=== PATIENT | male | born 1995 | race Caucasian/White ===

== ENCOUNTER 2017-01-25 15:52 | Inpatient (IN) | payer OTHER ==
[2017-01-25] MEDS ORDERED: Sodium Chloride 0.9% 1,000 ML IV STA (16:11)
[2017-01-25 16:26] LABS: ADD MANUAL DIFF? NO
[2017-01-25 16:30] LABS: BASO # 0.03 K/mm3 (0.0-2.0); BASO % 0.2 % (0.0-3.0); GRAN # 10.03 (1.4-6.5); GRAN % 75.8 % (50.0-68.0); HEMATOCRIT 48.6 % (42.0-52.0); LYMPH # 2.5 (1.2-3.4); MEAN CELL VOLUME 81.5 fL (80.0-105.0); MEAN CORPUSCULAR HEMOGLOBIN 27.9 pg (25.0-35.0); MEAN CORPUSCULAR HGB CONC 34.2 g/dl (31.0-37.0); MONO # 0.7 (0.1-0.6); PLATELET COUNT 237 10^3/uL (120.0-450.0); RED CELL DISTRIBUTION WIDTH 13.8 % (11.5-14.5); WHITE BLOOD COUNT 13.2 10^3/ul (4.5-11.0)
--- NOTE | 2017-01-25 16:31 | ED PDOC ---
Arrival/HPI - General Historian: Patient <Ludy Lopez PA-C - Last Filed: 01/25/17 18:59> <Pilo Alcaraz - Last Filed: 01/25/17 22:29> - General Chief Complaint: GI Problem Time Seen by Provider: 01/25/17 16:11 - History of Present Illness Narrative History of Present Illness (Text): 01/25/17 16:28 Patient w/ no PMH, complains nausea and multiple episodes of bright red bloody vomiting, with no abdominal pain, states that he was out drinking last night and drank a full bottle of [place]. Otherwise: (-) urinary symptoms, (-) diarrhea, (-) fever, (-) melena, (-) hematochezia. Has no history of prior abdominal surgery. PMD none (Ludy Lopez PA-C) Past Medical History - Provider Review Nursing Documentation Reviewed: Yes - Past History Past History: Non-Contributing - Infectious Disease Hx of Infectious Diseases: None - Tetanus Immunization Tetanus Immunization: Unknown - Reproductive Currently : No - Past Medical History Past Medical History: No Previous - Psychiatric Hx Depression: No Hx Emotional Abuse: No Hx Physical Abuse: No Hx Substance Use: No - Past Surgical History Past Surgical History: No Previous - Anesthesia Hx Anesthesia: No Hx Anesthesia Reactions: No Hx Malignant Hyperthermia: No - Suicidal Assessment Feels Threatened In Home Enviroment: No <Ludy Lopez PA-C - Last Filed: 01/25/17 18:59> Family/Social History - Physician Review Nursing Documentation Reviewed: Yes Family/Social History: No Known Family HX Smoking Status: Heavy Smoker > 10 Cigarettes Daily Hx Alcohol Use: No Hx Substance Use: No Substance used: marijuana Amount: 2 Hx Substance Use Treatment: No <Ludy Lopez PA-C - Last Filed: 01/25/17 18:59> Allergies/Home Meds <Ludy Lopez PA-C - Last Filed: 01/25/17 18:59> <Pilo Alcaraz - Last Filed: 01/25/17 22:29> Allergies/Adverse Reactions: Allergies No Known Allergies Allergy (Verified 01/25/17 15:57) Home Medications: Home Meds Medication Instructions Recorded Confirmed No Known Home Med 01/25/17 01/25/17 Review of Systems - Review of Systems Constitutional: Normal. absent: Fatigue, Weight Change, Fevers Respiratory: Normal. absent: SOB, Cough, Sputum Cardiovascular: Normal. absent: Chest Pain, Palpitations, Edema Gastrointestinal: Normal, Abdominal Pain, Nausea, Vomiting. absent: Stool Changes, Appetite Changes Musculoskeletal: Normal. absent: Arthralgias, Back Pain, Neck Pain Skin: Normal. absent: Rash, Pruritis, Skin Lesions <Ludy Lopez PA-C - Last Filed: 01/25/17 18:59> Physical Exam Vital Signs Reviewed: Yes Temperature: Afebrile Blood Pressure: Normal Pulse: Regular Respiratory Rate: Normal Appearance: Positive for: Well-Appearing, Other (Patient is actively vomiting (+ ) bright red blood.) Mental Status: Positive for: Alert and Oriented X 3 - Systems Exam Head: Present: Atraumatic, Normocephalic Mouth: Present: Dry Neck: Present: Normal Range of Motion. No: Meningeal Signs, MIDLINE TENDERNESS , Lymphadenopathy Respiratory/Chest: Present: Clear to Auscultation, Good Air Exchange. No: Respiratory Distress, Accessory Muscle Use, Wheezes, Rales, Rhonchi Cardiovascular: Present: Regular Rate and Rhythm, Normal S1, S2. No: Murmurs Abdomen: Present: Tenderness, Normal Bowel Sounds. No: Distention, Peritoneal Signs, Rebound, Guarding, Mass/Organomegaly Back: Present: Normal Inspection. No: CVA Tenderness, Midline Tenderness, Paraspinal Tenderness Upper Extremity: Present: Normal Inspection, Normal ROM. No: Tenderness, Swelling Lower Extremity: Present: Normal Inspection, Normal ROM. No: Tenderness, Swelling Neurological: Present: GCS=15, CN II-XII Intact, Speech Normal Skin: Present: Warm, Dry, Normal Color. No: Rashes <Ludy Lopez PA-C - Last Filed: 01/25/17 18:59> Medical Decision Making <Ludy Lopez PA-C - Last Filed: 01/25/17 18:59> <Pilo Alcaraz - Last Filed: 01/25/17 22:29> ED Course and Treatment: 01/25/17 16:26 21 yo M presents with nausea and vomiting, after drinking etoh last night. Consider upper GI bleed, gastritis, possible yoshi cedeno tear. Plan: - Labs - IV - NS bolus - Pepcid / Zofran 01/25/17 18:00 On re-evaluation, patient is still feeling nauseous, is still actively vomiting bright red vomit, denies any abdominal pain. On exam, patient is in mild distress, abdomen remains soft with no tenderness. Labs reviewed and discussed with the patient. Given another dose of reglan IV and given continued NS. VSS. Considering the history and patient's continued vomiting with bright red vomit, will admit the patient. Call placed to Dr. Caba and case discussed, arrangements made for admission. Patient agrees for further plan of care. Protonix bolus and drip IV ordered. (John URBINA,Ludy Lamar) - Lab Interpretations Lab Results: 01/25/17 16:15 01/25/17 16:15 Lab Results 01/25/17 16:15: Alcohol, Quantitative < 10 01/25/17 16:15: Sodium 142, Potassium 4.0, Chloride 100, Carbon Dioxide 24, Anion Gap 22 H, BUN 17, Creatinine 0.8, Est GFR ( Amer) > 60, Est GFR ( Non-Af Amer) > 60, Random Glucose 93, Calcium 10.4, Total Bilirubin 0.8, AST 55 , ALT 48, Alkaline Phosphatase 88, Total Protein 9.7 H, Albumin 5.5 H, Globulin 4.3, Albumin/Globulin Ratio 1.3, Lipase 44 01/25/17 16:15: PT 11.1, INR 1.03, APTT 26.8 01/25/17 16:15: WBC 13.2 H, RBC 5.96, Hgb 16.6, Hct 48.6, MCV 81.5, MCH 27.9, MCHC 34.2, RDW 13.8, Plt Count 237, MPV 12.0 H, Gran % 75.8 H, Lymph % (Auto) 19.0 L, Mcminn % (Auto) 5.0, Eos % (Auto) 0.0 L, Baso % (Auto) 0.2, Gran # 10.03 H , Lymph # 2.5, Mcminn # 0.7 H, Eos # 0.0, Baso # 0.03 - Medication Orders Current Medication Orders: Sodium Chloride (Sodium Chloride 0.9%) 1,000 mls @ 200 mls/hr IV .Q5H RISHI Last Admin: 01/25/17 18:15 Dose: 200 mls/hr Pantoprazole Sodium (Protonix 40mg Ivpb) 40 mg in 100 mls @ 20 mls/hr IVPB .Q5H RISHI Last Admin: 01/25/17 18:46 Dose: 20 mls/hr Lorazepam (Ativan) 2 mg IVP Q4H PRN; Protocol PRN Reason: Symptoms of alcohol withdrawl Ondansetron HCl (Zofran Inj) 4 mg IVP Q4H PRN PRN Reason: Nausea/Vomiting Discontinued Medications Famotidine (Pepcid) 20 mg IVP STAT STA Stop: 01/25/17 16:12 Last Admin: 01/25/17 16:23 Dose: 20 mg Sodium Chloride (Sodium Chloride 0.9%) 1,000 mls @ 1,000 mls/hr IV .Q1H STA Stop: 01/25/17 17:10 Last Admin: 01/25/17 16:28 Dose: 1,000 mls/hr Metoclopramide HCl (Reglan) 10 mg IVP STAT STA Stop: 01/25/17 17:36 Last Admin: 01/25/17 18:14 Dose: 10 mg Ondansetron HCl (Zofran Inj) 8 mg IVP STAT STA Stop: 01/25/17 16:12 Last Admin: 01/25/17 16:23 Dose: 8 mg Pantoprazole Sodium (Protonix Inj) 80 mg IVP STAT STA Stop: 01/25/17 18:17 Last Admin: 01/25/17 18:45 Dose: 80 mg - PA / PARKING ATTENDANT / Resident Statement JIHAN has reviewed & agrees with the documentation as recorded. <Ludy Lopez PA-C - Last Filed: 01/25/17 18:59> - PA / PARKING ATTENDANT / Resident Statement JIHAN has reviewed & agrees with the documentation as recorded. <Pilo Alcaraz - Last Filed: 01/25/17 22:29> Disposition/Present on Arrival - Present on Arrival Any Indicators Present on Arrival: No History of DVT/PE: No History of Uncontrolled Diabetes: No Urinary Catheter: No History of Decub. Ulcer: No History Surgical Site Infection Following: None - Disposition Have Diagnosis and Disposition been Completed?: Yes Disposition Time: 18:15 Patient Plan: Telemetry <Ludy Lopez PA-C - Last Filed: 01/25/17 18:59> <Pilo Alcaraz - Last Filed: 01/25/17 22:29> - Disposition Diagnosis: Intractable vomiting, Upper GI bleed Disposition: HOSPITALIZED Patient Problems: Current Active Problems Problem Status Onset Intractable vomiting Acute Upper GI bleed Acute Condition: STABLE
[2017-01-25 16:38] LABS: ALB/GLOB RATIO 1.3 (1.1-1.8); ALKALINE PHOSPHATASE 88 U/L (38-133); ALT/SGPT 48 U/L (7-56); AST/SGOT 55 U/L (15-59); BILIRUBIN,TOTAL 0.8 mg/dL (0.2-1.3); BLOOD UREA NITROGEN 17 mg/dL (7-21); CALCIUM 10.4 mg/dL (8.4-10.5); CARBON DIOXIDE 24 mmol/L (21-33); CHLORIDE 100 mmol/L (98-107); GFR AFRICAN-AMERICAN > 60; GLUCOSE,RANDOM 93 mg/dL (70-110); LIPASE 44 U/L (23-300); SODIUM 142 mmol/L (132-148); TOTAL PROTEIN 9.7 g/dL (5.8-8.3)
[2017-01-25 16:48] LABS: INR 1.03 (0.93-1.08); PARTIAL THROMBOPLASTIN TIME 26.8 Seconds (23.7-30.8)
[2017-01-25] MEDS: Sodium Chloride 0.9% 1,000 ML IV SCH ×2 (18:15→23:43)
[2017-01-25] MEDS: Pantoprazole 40mg/100ml IVPB 40 MG/100 ML BAG IVPB SCH ×2 (18:46→23:40)
--- NOTE | 2017-01-25 19:23 | CP.PCM.HP ---
<EsdrasKenn rock - Last Filed: 01/25/17 19:19> History of Present Illness - History of Present Illness History of Present Illness: cc: nausea/vomiting HPI: Patient is a 21yo male with past medical history of alcohol abuse that presents c/o nausea and vomiting since 1pm today. Patient reported that he had more than a bottle of hard liquor the night prior and woke up this morning with a headache and nausea. He reported that he starting having coffee-ground emesis in the afternoon. Patient stated that he has had visiting to the [facility] in the past for the same issue due to alcohol abuse. In the ED, patient's vitals were as follows: temperature 97.5F, heart rate 67bpm, blood pressure 136/82, respiratory rate 16, o2 sat 100% on room air. His H/H was 16.6/48.6, lipase 44, AST/ALT 55/48, Tbili 0.8. He denied chest pain, palpitations, SOB, abdominal pain, fever, chills, cough, focal weakness, numbness, tingling. 12point ROS as per HPI above, otherwise negative PMHx: Alcohol abuse PSHx: denies Allergies: NKDA Medications: denies Family hx: denies family hx of illness Social Hx: Tobacco use (1/2ppd for ~6yrs), history of alcohol abuse (unable to quantify amount), denies illicit drug use Present on Admission - Present on Admission Any Indicators Present on Admission: No Past Patient History - Infectious Disease Hx of Infectious Diseases: None - Tetanus Immunizations Tetanus Immunization: Unknown - Past Social History Smoking Status: Heavy Smoker > 10 Cigarettes Daily - PSYCHIATRIC Hx Depression: No Hx Emotional Abuse: No Hx Physical Abuse: No Hx Substance Use: No - SURGICAL HISTORY Hx Surgeries: No - ANESTHESIA Hx Anesthesia: No Hx Anesthesia Reactions: No Hx Malignant Hyperthermia: No Meds Allergies/Adverse Reactions: Allergies Allergy/AdvReac Type Severity Reaction Status Date / Time No Known Allergies Allergy Verified 01/25/17 15:57 Physical Exam - Constitutional Appears: Non-toxic, No Acute Distress - Head Exam Head Exam: ATRAUMATIC, NORMAL INSPECTION, NORMOCEPHALIC - Eye Exam Eye Exam: EOMI, PERRL - ENT Exam ENT Exam: Mucous Membranes Moist - Neck Exam Neck exam: Positive for: Normal Inspection. Negative for: Lymphadenopathy, Tenderness, Thyromegaly - Respiratory Exam Respiratory Exam: Clear to Auscultation Bilateral. absent: Rales, Rhonchi, Wheezes - Cardiovascular Exam Cardiovascular Exam: RRR, +S1, +S2. absent: Gallop, JVD, Rubs, Systolic Murmur - GI/Abdominal Exam GI & Abdominal Exam: Soft. absent: Distended, Firm, Guarding, Rebound, Tenderness - Extremities Exam Extremities exam: Positive for: normal inspection, pedal pulses present. Negative for: calf tenderness, pedal edema, tenderness - Back Exam Back exam: NORMAL INSPECTION - Neurological Exam Neurological exam: Alert, CN II-XII Intact, Oriented x3 - Psychiatric Exam Psychiatric exam: Normal Affect, Normal Mood - Skin Skin Exam: Dry, Intact, Normal Color, Warm Results - Vital Signs Recent Vital Signs: Last Vital Signs Temp 98 F 01/25/17 15:55 Pulse 75 01/25/17 18:45 Resp 17 01/25/17 18:45 BP 150/80 01/25/17 18:45 Pulse Ox 100 01/25/17 18:45 - Labs Result Diagrams: 01/25/17 16:15 01/25/17 16:15 Assessment & Plan - Assessment and Plan (Free Text) Plan: 21yo male with history of alcohol abuse presents c/o intractable nausea/ vomiting secondary to alcohol abuse 1. Intractable nausea/vomiting -Coffee-ground emesis likely due to yoshi-cedeno tear secondary to alcohol abuse/wretching -H/H stable -Nausea/vomiting improved with zofran administration -No overt signs of bleeding at this time -Continue with zofran 4mg q4h PRN for nausea/vomiting -Continue protonix drip -IVF hydration with NS @200cc/hr -NPO -GI consulted - Dr. Jefferson 2. Alcohol abuse -Serum alcohol pending -[facility] protocol -Ativan 2q4 PRN in the event of withdrawal symptoms 3. GI/DVT prophylaxis -Protonix/SCD's Patient seen and case discussed with attending, Dr. Jay - Date & Time Date: 01/25/17 Time: 19:29 <Nilda Jay - Last Filed: 01/25/17 20:27> Results - Vital Signs Recent Vital Signs: Last Vital Signs Temp 98 F 01/25/17 15:55 Pulse 72 01/25/17 19:50 Resp 18 06/24/17 19:50 BP 121/69 01/25/17 19:50 Pulse Ox 100 01/25/17 19:50 - Labs Result Diagrams: 01/25/17 16:15 01/25/17 16:15 Attending/Attestation - Attestation I have personally seen and examined this patient.: Yes I have fully participated in the care of the patient.: Yes I have reviewed all pertinent clinical information: Yes Notes (Text): 01/25/17 20:25 Patient was seen when he was in bed # 15 in the ER. Agree with history, physical examination, assessment and plan. Patient admits to have used and have been using marijuana sometimes.
[2017-01-25 23:06] VITALS: BMI 18.4
[2017-01-26 00:14] VITALS: RESP 20
[2017-01-26] MEDS: Pantoprazole 40mg/100ml IVPB 40 MG/100 ML BAG IVPB SCH (04:12)
[2017-01-26] MEDS: Sodium Chloride 0.9% 1,000 ML IV SCH ×3 (04:17→11:06)
[2017-01-26 06:03] VITALS: O2SAT 98
[2017-01-26 07:27] LABS: ADD MANUAL DIFF? NO
[2017-01-26 08:09] LABS: BASO # 0.01 K/mm3 (0.0-2.0); BASO % 0.1 % (0.0-3.0); EOS % 0.2 % (1.5-5.0); GRAN # 5.85 (1.4-6.5); GRAN % 58.9 % (50.0-68.0); LYMPH # 3.3 (1.2-3.4); LYMPH % 33.2 % (22.0-35.0); MEAN CELL VOLUME 82.1 fL (80.0-105.0); MEAN CORPUSCULAR HEMOGLOBIN 26.9 pg (25.0-35.0); MEAN CORPUSCULAR HGB CONC 32.7 g/dl (31.0-37.0); MEAN PLATELET VOLUME 12.7 fl (7.0-11.0); MONO # 0.8 (0.1-0.6); MONO % 7.6 % (1.0-6.0); PLATELET COUNT 183 10^3/uL (120.0-450.0); RED CELL DISTRIBUTION WIDTH 13.8 % (11.5-14.5); WHITE BLOOD COUNT 9.9 10^3/ul (4.5-11.0)
[2017-01-26 08:10] LABS: HEMATOCRIT 39.4 % (42.0-52.0)
[2017-01-26 08:12] LABS: ALB/GLOB RATIO 1.5 (1.1-1.8); ALKALINE PHOSPHATASE 47 U/L (38-133); ALT/SGPT 36 U/L (7-56); AST/SGOT 28 U/L (15-59); BILIRUBIN,TOTAL 0.9 mg/dL (0.2-1.3); BLOOD UREA NITROGEN 14 mg/dL (7-21); CALCIUM 8.5 mg/dL (8.4-10.5); CARBON DIOXIDE 23 mmol/L (21-33); CHLORIDE 105 mmol/L (95-110); GFR AFRICAN-AMERICAN > 60; GLUCOSE,RANDOM 63 mg/dL (70-110); MAGNESIUM 1.9 mg/dL (1.7-2.2); POTASSIUM 4.1 mmol/L (3.6-5.0); SODIUM 139 mmol/L (132-148); TOTAL PROTEIN 6.2 g/dL (5.8-8.3)
--- NOTE | 2017-01-26 08:12 | CP.PCM.CON ---
History of Present Illness - History of Present Illness History of Present Illness: Asked by hospitalist team for a GI consultation on this patient. 21 year old male without significant past medical history who presents to the hospital with complaint of sudden onset nausea and vomiting which began at 1 pm yesterday. He was out for a friends birthday the night before and endorses heavy ETOH consumption with multiple glasses of hard liquor and beer. Prior to this he was in usual state of health. He endorses having multiple episodes of emesis, initially clear which later turned to dark color. He denies abdominal pain, fever/chills, weight loss, rectal bleeding, or change in bowel habits. Since arrival to hospital, no further episodes of nausea or vomiting. No prior endoscopic evaluation. Social history: smokes 1/2 PPD cigarettes, social ETOH consumption (though heavy during episodes) Family history: reviewed, patient denies GI malignancies Review of Systems - Review of Systems Review of Systems: - All other comprehensive 12 point review of systems performed, negative - Cardiovascular Cardiovascular: absent: Acrocyanosis, Chest Pain, Chest Pain at Rest, Chest Pain with Activity, Claudication, Diaphoresis, Dyspnea, Dyspnea on Exertion, Edema, Irregular Heart Rhythm, Pain Radiating to Arm/Neck/Jaw, Leg Edema, Leg Ulcers, Lightheadedness, Orthopnea, Palpitations, Paroxysmal Nocturnal Dyspnea, Pedal Edema, Radiating Pain, Rapid Heart Rate, Slow Heart Rate, Syncope, Other - Respiratory Respiratory: absent: Cough, Dyspnea, Hemoptysis, Dyspnea on Exertion, Wheezing, Snoring, Stridor, Pain on Inspiration, Chest Congestion, Excessive Mucous Production, Change in Mucous Color, Pain with Coughing, Other - Gastrointestinal Gastrointestinal: Nausea, Vomiting - Musculoskeletal Musculoskeletal: absent: Abnormal Gait, Arthralgias, Atrophy, Back Pain, Deformity, Joint Swelling, Limited Range of Motion, Loss of Height, Muscle Cramps, Muscle Weakness, Myalgias, Neck Pain, Numbness, Radiating Pain into Limb , Stiffness, Tingling, Other - Neurological Neurological: absent: Abnormal Gait, Abnormal Hearing, Abnormal Movements, Abnormal Speech, Behavioral Changes, Burning Sensations, Confusion, Convulsions , Disequilibrium, Dizziness, Numbness, Focal Weakness, Frequent Falls, Headaches , Lack of Coordination, Loss of Vision, Memory Loss, Paresthesias, Radicular Pain, Restless Legs, Sensory Deficit, Syncope, Tingling, Tremor, Vertigo, Weakness, Other Visual Disturbances, Other Past Patient History - Infectious Disease Hx of Infectious Diseases: None - Tetanus Immunizations Tetanus Immunization: Unknown - Past Social History Smoking Status: Light Smoker < 10 Cigarettes Daily - CARDIAC Hx Cardiac Disorders: No Hx Angina: No Hx Cardia Arrhythmia: No Hx Circulatory Problems: No Hx Congestive Heart Failure: No Hx Heart Murmur: No Hx Heart Transplant: No Hx Hypercholesterolemia: No Hx Hypertension: No Hx Internal Defibrillator: No Hx Mitral Valve Prolapse: No Hx Pacemaker: No Hx Peripheral Edema: No Hx Peripheral Vascular Disease: No - PULMONARY Hx Respiratory Disorders: No Hx Asthma: No Hx Bronchitis: No Hx Chronic Obstructive Pulmonary Disease (COPD): No Hx Emphysema: No Hx Pneumonia: No Hx Respiratory Aspiration: No Hx Respiratory Tract Infection: No Hx Sleep Apnea: No Hx Tuberculosis: No - NEUROLOGICAL Hx Neurological Disorder: No Hx Alzheimer's Disease: No HX Cerebrovascular Accident: No Hx Dementia: No Hx Dizziness: No Hx Meningitis: No Hx Migraine: No Hx Parkinson's Disease: No Hx Seizures: No Hx Transient Ischemic Attacks (TIA): No - HEENT Hx HEENT Problems: No Hx Blind: No Hx Cataracts: No Hx Deafness: No Hx Difficulty Chewing: No Hx Epistaxis: No Hx Glaucoma: No Hx Macular Degeneration: No - RENAL Hx Chronic Kidney Disease: No Hx Dialysis: No Hx Kidney Stones: No Hx Neurogenic Bladder: No Hx Pyelonephritis: No Hx Renal (Kidney) Cancer: No Hx Renal Failure: No - ENDOCRINE/METABOLIC Hx Endocrine Disorders: No Hx Adrenal Cancer: No Hx Diabetes Insipidus: No Hx Diabetes Mellitus Type 1: No Hx Diabetes Mellitus Type 2: No Hx Hyperthyroidism: No Hx Hypothyroidism: No Hx Systemic Lupus Erythematosus: No - HEMATOLOGICAL/ONCOLOGICAL Hx Blood Disorders: No Hx AIDS: No Hx Anemia: No Hx Cancer: No Hx Chemotherapy: No Hx Cirrhosis: No Hx Hemophilia: No Hx Hepatitis A: No Hx Hepatitis B: No Hx Hepatitis C: No Hx Human Immunodeficiency Virus (HIV): No Hx Metastesis: No Hx Shingles: No Hx Sickle Cell Disease: No Hx Unexplained Bleeding: No - INTEGUMENTARY Hx Dermatological Problems: No Hx Basil Cell: No Hx Eczema: No Hx Melanoma: No Hx Psoriasis: No Hx Squamous Cell: No - MUSCULOSKELETAL/RHEUMATOLOGICAL Hx Musculoskeletal Disorders: No Hx Arthritis: No Hx Back Pain: No Hx Degenerative Joint Disease: No Hx Falls: No Hx Fractures: No Hx Gout: No Hx Herniated Disk: No Hx Myasthenia Gravis: No Hx Osteoarthritis: No Hx Osteomyelitis: No Hx Osteoporosis: No Hx Rhabdomyolysis: No Hx Spinal Stenosis: No Hx Unsteady Gait: No - GASTROINTESTINAL Hx Gastrointestinal Disorders: No Hx Colostomy: No Hx Crohn's Disease: No Hx Diverticulitis: No Hx Gall Bladder Disease: No Hx Gastroesophageal Reflux: No Hx Ileostomy: No Hx Liver Failure: No Hx Pancreatitis: No HX Swallowing Problems: No Hx Ulcer: No Other/Comment: alcohol abuse - GENITOURINARY/GYNECOLOGICAL Hx Genitourinary Disorders: No Hx Hematuria: No Hx Incontinence: No Hx Prostate Problems: No Hx Sexually Transmitted Disorders: No Hx Urinary Tract Infection: No - PSYCHIATRIC Hx Psychophysiologic Disorder: No Hx Anxiety: No Hx Bipolar Disorder: No Hx Depression: No Hx Emotional Abuse: No Hx Hallucinations: No Hx Panic Symptoms: No Hx Paranoia: No Hx Post Traumatic Stress Disorder: No Hx Psychosis: No Hx Physical Abuse: No Hx Schizophrenia: No Hx Sexual Abuse: No Hx Substance Use: No - SURGICAL HISTORY Hx Surgeries: No Hx Cardiac Catheterization: No Hx Coronary Stent: No - ANESTHESIA Hx Anesthesia: No Hx Anesthesia Reactions: No Hx Malignant Hyperthermia: No Meds Allergies/Adverse Reactions: Allergies Allergy/AdvReac Type Severity Reaction Status Date / Time No Known Allergies Allergy Verified 01/25/17 15:57 - Medications Medications: Current Medications Lorazepam (Ativan) 2 mg IVP Q4H PRN; Protocol PRN Reason: Symptoms of alcohol withdrawl Ondansetron HCl (Zofran Inj) 4 mg IVP Q4H PRN PRN Reason: Nausea/Vomiting Pantoprazole Sodium (Protonix Ec Tab) 40 mg PO 0600 [facility] Physical Exam - Constitutional Appears: Non-toxic, No Acute Distress - Head Exam Head Exam: NORMAL INSPECTION - Eye Exam Eye Exam: EOMI, Normal appearance - ENT Exam ENT Exam: Mucous Membranes Moist - Respiratory Exam Respiratory Exam: Clear to Auscultation Bilateral - Cardiovascular Exam Cardiovascular Exam: REGULAR RHYTHM, +S1, +S2 - GI/Abdominal Exam GI & Abdominal Exam: Normal Bowel Sounds, Soft Additional comments: non tender to palpation in four quadrants no palpable hepato/splenomegaly - Extremities Exam Extremities exam: Positive for: normal inspection - Neurological Exam Neurological exam: Alert, CN II-XII Intact, Oriented x3, Reflexes Normal - Psychiatric Exam Psychiatric exam: Normal Affect, Normal Mood - Skin Skin Exam: Dry, Intact, Normal Color, Warm Results - Vital Signs Recent Vital Signs: Last Vital Signs Temp 98.5 F 01/26/17 05:59 Pulse 85 01/26/17 05:59 Resp 20 01/26/17 05:59 BP 107/59 L 01/26/17 05:59 Pulse Ox 98 01/26/17 05:59 - Labs Result Diagrams: 01/25/17 16:15 01/25/17 16:15 Assessment & Plan - Assessment and Plan (Free Text) Assessment: Nausea, vomiting in setting of recent ETOH binge Overall symptoms resolved Plan: - Full liquid diet, advance slowly as tolerated - May discontinue PPI infusion, change to once daily oral therapy for treatment duration of 2 weeks - Anti-emetic therapy PRN - Continue with supportive care, gentle IVF hydration - ETOH cessation counseling - From GI perspective, if tolerating PO diet ok to discharge home with subsequent outpatient follow up. Will sign off case, please reconsult as necessary, thank you.
[2017-01-26 12:41] VITALS: BP 127/71; PULSE 72; TEMP 98
--- NOTE | 2017-01-26 13:32 | CP.PCM.DIS ---
<Evette Zambraon - Last Filed: 01/26/17 17:54> Provider - Provider Date of Admission: 01/25/17 18:14 Attending physician: Srini Caba MD Primary care physician: NO PRIMARY CARE PROVIDER Consults: EBER Yan Time Spent in preparation of Discharge (in minutes): 45 Hospital Course - Lab Results Lab Results: Most Recent Lab Values WBC 9.9 10^3/ul (4.5-11.0) D 01/26/17 07:00 RBC 4.80 10^6/uL (3.5-6.1) 01/26/17 07:00 Hgb 12.9 gm/dL (14.0-18.0) L 01/26/17 07:00 Hct 39.4 % (42.0-52.0) L 01/26/17 07:00 MCV 82.1 fL (80.0-105.0) 01/26/17 07:00 MCH 26.9 pg (25.0-35.0) 01/26/17 07:00 MCHC 32.7 g/dl (31.0-37.0) 01/26/17 07:00 RDW 13.8 % (11.5-14.5) 01/26/17 07:00 Plt Count 183 10^3/uL (120.0-450.0) 01/26/17 07:00 MPV 12.7 fl (7.0-11.0) H 01/26/17 07:00 Gran % 58.9 % (50.0-68.0) 01/26/17 07:00 Lymph % (Auto) 33.2 % (22.0-35.0) 01/26/17 07:00 Dewey % (Auto) 7.6 % (1.0-6.0) H 01/26/17 07:00 Eos % (Auto) 0.2 % (1.5-5.0) L 01/26/17 07:00 Baso % (Auto) 0.1 % (0.0-3.0) 01/26/17 07:00 Gran # 5.85 (1.4-6.5) 01/26/17 07:00 Lymph # 3.3 (1.2-3.4) 01/26/17 07:00 Dewey # 0.8 (0.1-0.6) H 01/26/17 07:00 Eos # 0.0 (0.0-0.7) 01/26/17 07:00 Baso # 0.01 K/mm3 (0.0-2.0) 01/26/17 07:00 PT 11.1 Seconds (9.9-11.8) 01/25/17 16:15 INR 1.03 (0.93-1.08) 01/25/17 16:15 APTT 26.8 Seconds (23.7-30.8) 01/25/17 16:15 Sodium 139 mmol/L (132-148) 01/26/17 07:00 Potassium 4.1 mmol/L (3.6-5.0) 01/26/17 07:00 Chloride 105 mmol/L (95-110) 01/26/17 07:00 Carbon Dioxide 23 mmol/L (21-33) 01/26/17 07:00 Anion Gap 15 (10-20) 01/26/17 07:00 BUN 14 mg/dL (7-21) 01/26/17 07:00 Creatinine 0.9 mg/dL (0.5-1.4) 01/26/17 07:00 Est GFR ( Amer) > 60 01/26/17 07:00 Est GFR (Non-Af Amer) > 60 01/26/17 07:00 Random Glucose 63 mg/dL (70-110) L 01/26/17 07:00 Calcium 8.5 mg/dL (8.4-10.5) 01/26/17 07:00 Magnesium 1.9 mg/dL (1.7-2.2) 01/26/17 07:00 Total Bilirubin 0.9 mg/dL (0.2-1.3) 01/26/17 07:00 AST 28 U/L (15-59) 01/26/17 07:00 ALT 36 U/L (7-56) 01/26/17 07:00 Alkaline Phosphatase 47 U/L (38-133) 01/26/17 07:00 Total Protein 6.2 g/dL (5.8-8.3) 01/26/17 07:00 Albumin 3.7 g/dL (3.0-4.8) 01/26/17 07:00 Globulin 2.5 gm/dL 01/26/17 07:00 Albumin/Globulin Ratio 1.5 (1.1-1.8) 01/26/17 07:00 Lipase 44 U/L (23-300) 01/25/17 16:15 Urine Opiates Screen Negative (NEGATIVE) 01/26/17 08:20 Urine Methadone Screen Negative (NEGATIVE) 01/26/17 08:20 Ur Barbiturates Screen Negative (NEGATIVE) 01/26/17 08:20 Ur Phencyclidine Scrn Negative (NEGATIVE) 01/26/17 08:20 Ur Amphetamines Screen Negative (NEGATIVE) 01/26/17 08:20 U Benzodiazepines Scrn Negative (NEGATIVE) 01/26/17 08:20 U Oth Cocaine Metabols Negative (NEGATIVE) 01/26/17 08:20 U Cannabinoids Screen Positive (NEGATIVE) H 01/26/17 08:20 Alcohol, Quantitative < 10 mg/dL (0-10) 01/25/17 16:15 - Hospital Course Hospital Course: 21 M with PMHx of alcohol abuse that presented to [facility] ED with complaints of nausea and vomiting x 1 day in the setting of recent alcohol binge. Patient reported that he had more than a bottle of hard liquor the night prior and woke up this morning with a headache and nausea. He reported that he starting having coffee-ground emesis afterwards. Patient stated that he has had visiting to the [place] ER in the past for the same issue due to alcohol abuse. In the ED, patient's vitals were as follows: temperature 97.5F, heart rate 67bpm, blood pressure 136/82, respiratory rate 16, o2 sat 100% on room air. His H/H was 16.6/ 48.6, lipase 44, AST/ALT 55/48, Tbili 0.8. Pt was admitted with intractable n/v and Coffee-ground emesis likely due to yoshi-cedeno tear secondary to alcohol abuse/wretching. Pt H/H remained stable and Nausea/vomiting improved with zofran administration. Pt did not have any overt signs of bleeding at time of admission. Pt was placed on a protonix drip and GI, Dr. Beltran was consulted. Dr Yan covering for Dr. Jefferson saw pt and recommended to advance diet to full liquids and discontinue protonix infusion. Pt tolerated diet and was cleared to dc home by GI. Pt was further educated about etoh abuse cessation. Pt understood and agreed. Pt did not demonstrate any s/s of etoh withdrawal. Upon dc, pt is to FU with PMD of choice within 3-5 days or [facility] clinic. Discharge Exam - Head Exam Head Exam: NORMAL INSPECTION - Eye Exam Eye Exam: EOMI, Normal appearance, PERRL Pupil Exam: NORMAL ACCOMODATION, PERRL - ENT Exam ENT Exam: Mucous Membranes Moist - Respiratory Exam Respiratory Exam: Clear to PA & Lateral, NORMAL BREATHING PATTERN, UNREMARKABLE - Cardiovascular Exam Cardiovascular Exam: RRR, +S1, +S2 - GI/Abdominal Exam GI & Abdominal Exam: Normal Bowel Sounds - Extremities Exam Extremities exam: normal inspection - Neurological Exam Neurological exam: Alert, CN II-XII Intact, Normal Gait, Oriented x3, Reflexes Normal - Psychiatric Exam Psychiatric exam: Normal Affect, Normal Mood - Skin Skin Exam: Dry, Intact, Normal Color, Warm Discharge Plan - Discharge Medications Prescriptions: Folic Acid 1 mg PO DAILY #30 tab Multimineral/Multivitamin [Therapeutic-M Tab] 1 tab PO 0800 #30 tab Pantoprazole [Protonix EC Tab] 40 mg PO 0600 #30 ect Thiamine [Vitamin B1 Tab] 100 mg PO DAILY #30 tab - Follow Up Plan Condition: STABLE Disposition: HOME/ ROUTINE Instructions: How to Stop Smoking (DC), Abuse of Alcohol (GEN) Additional Instructions: 1. Follow up with PMD of choice. 2. Stop alcohol. 3. Attend AA meetings/AA rehab. Referrals: PCP,NO [Primary Care Provider] - <Annie Melton - Last Filed: 01/27/17 13:19> Provider - Provider Date of Admission: 01/25/17 18:14 Attending physician: Srini Caba MD Primary care physician: NO PRIMARY CARE PROVIDER Hospital Course - Lab Results Lab Results: Most Recent Lab Values WBC 9.9 10^3/ul (4.5-11.0) D 01/26/17 07:00 RBC 4.80 10^6/uL (3.5-6.1) 01/26/17 07:00 Hgb 12.9 gm/dL (14.0-18.0) L 01/26/17 07:00 Hct 39.4 % (42.0-52.0) L 01/26/17 07:00 MCV 82.1 fL (80.0-105.0) 01/26/17 07:00 MCH 26.9 pg (25.0-35.0) 01/26/17 07:00 MCHC 32.7 g/dl (31.0-37.0) 01/26/17 07:00 RDW 13.8 % (11.5-14.5) 01/26/17 07:00 Plt Count 183 10^3/uL (120.0-450.0) 01/26/17 07:00 MPV 12.7 fl (7.0-11.0) H 01/26/17 07:00 Gran % 58.9 % (50.0-68.0) 01/26/17 07:00 Lymph % (Auto) 33.2 % (22.0-35.0) 01/26/17 07:00 Dewey % (Auto) 7.6 % (1.0-6.0) H 01/26/17 07:00 Eos % (Auto) 0.2 % (1.5-5.0) L 01/26/17 07:00 Baso % (Auto) 0.1 % (0.0-3.0) 01/26/17 07:00 Gran # 5.85 (1.4-6.5) 01/26/17 07:00 Lymph # 3.3 (1.2-3.4) 01/26/17 07:00 Dewey # 0.8 (0.1-0.6) H 01/26/17 07:00 Eos # 0.0 (0.0-0.7) 01/26/17 07:00 Baso # 0.01 K/mm3 (0.0-2.0) 01/26/17 07:00 PT 11.1 Seconds (9.9-11.8) 01/25/17 16:15 INR 1.03 (0.93-1.08) 01/25/17 16:15 APTT 26.8 Seconds (23.7-30.8) 01/25/17 16:15 Sodium 139 mmol/L (132-148) 01/26/17 07:00 Potassium 4.1 mmol/L (3.6-5.0) 01/26/17 07:00 Chloride 105 mmol/L (95-110) 01/26/17 07:00 Carbon Dioxide 23 mmol/L (21-33) 01/26/17 07:00 Anion Gap 15 (10-20) 01/26/17 07:00 BUN 14 mg/dL (7-21) 01/26/17 07:00 Creatinine 0.9 mg/dL (0.5-1.4) 01/26/17 07:00 Est GFR ( Amer) > 60 01/26/17 07:00 Est GFR (Non-Af Amer) > 60 01/26/17 07:00 Random Glucose 63 mg/dL (70-110) L 01/26/17 07:00 Calcium 8.5 mg/dL (8.4-10.5) 01/26/17 07:00 Magnesium 1.9 mg/dL (1.7-2.2) 01/26/17 07:00 Total Bilirubin 0.9 mg/dL (0.2-1.3) 01/26/17 07:00 AST 28 U/L (15-59) 01/26/17 07:00 ALT 36 U/L (7-56) 01/26/17 07:00 Alkaline Phosphatase 47 U/L (38-133) 01/26/17 07:00 Total Protein 6.2 g/dL (5.8-8.3) 01/26/17 07:00 Albumin 3.7 g/dL (3.0-4.8) 01/26/17 07:00 Globulin 2.5 gm/dL 01/26/17 07:00 Albumin/Globulin Ratio 1.5 (1.1-1.8) 01/26/17 07:00 Lipase 44 U/L (23-300) 01/25/17 16:15 Urine Opiates Screen Negative (NEGATIVE) 01/26/17 08:20 Urine Methadone Screen Negative (NEGATIVE) 01/26/17 08:20 Ur Barbiturates Screen Negative (NEGATIVE) 01/26/17 08:20 Ur Phencyclidine Scrn Negative (NEGATIVE) 01/26/17 08:20 Ur Amphetamines Screen Negative (NEGATIVE) 01/26/17 08:20 U Benzodiazepines Scrn Negative (NEGATIVE) 01/26/17 08:20 U Oth Cocaine Metabols Negative (NEGATIVE) 01/26/17 08:20 U Cannabinoids Screen Positive (NEGATIVE) H 01/26/17 08:20 Alcohol, Quantitative < 10 mg/dL (0-10) 01/25/17 16:15 Attending/Attestation - Attestation I have personally seen and examined this patient.: Yes I have fully participated in the care of the patient.: Yes I have reviewed all pertinent clinical information, including history, physical exam and plan: Yes Notes (Text): 01/27/17 13:18 Attending note; Patient seen and examined with resident. Patient is a 21-ear-old male admitted with nausea and vomiting after binge drinking. Patient had an episode of hematemesis resolved on it's own. GI evaluation with DR. Yan Appreciated. Complete alcohol cessation is strongly advised. Advised to follow-up with AA meetings. Patient is tolerating diet. No nausea or vomiting noted. Patient will be discharged home with Protonix.
[2017-01-27] MEDS ORDERED: Pantoprazole 40 mg EC Tab PO SCH (06:00)
[2017-01-27] MEDS ORDERED: Multivitamin With Minerals Tab PO SCH (08:00)
== END 2017-01-26 14:05 | disposition home or self-care (01) | DRG 894 ==
LOC: ED 15:52 → ERH 18:14 → 2RNO 20:40
PROVIDERS: ADMIT Internal Medicine; ATTEND Internal Medicine
DX: K22.6 Gastro-esophageal laceration-hemorrhage syndrome (principal); F10.10 Alcohol abuse, uncomplicated; F17.210 Nicotine dependence, cigarettes, uncomplicated; R11.2 Nausea with vomiting, unspecified